=== PATIENT | female | born 1985 | race Caucasian/White ===

== ENCOUNTER 2022-08-16 22:15 | Emergency (ER) | payer MEDICAID ==
[2022-08-16 22:29] VITALS: BP 129/77
--- NOTE | 2022-08-16 22:58 | ED Physician Documentation ---
History of Present Illness - Stated complaint Stated Complaint: FET DETOX - Chief complaint Chief Complaint: General - History obtained from History obtained from: Patient, Other (SUSIE Magana at [facility] treatment facility) - Additonal information Additional information: 37-year-old woman presented from [facility] addiction treatment facility after being kicked out for having narcotics on her person. Patient comes into the emergency department requesting additional resources for addiction treatment. She has her belongings with her and states she has nowhere to sleep. Also states she has rough skin on both forearms. no other complaints. 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." - Present Medications Home Medications: Ambulatory Orders Medication Instructions Recorded Confirmed No Known Home Medications 08/16/22 08/16/22 - Allergies Allergies/Adverse Reactions: Allergies Allergy/AdvReac Type Severity Reaction Status Date / Time Penicillins Allergy Unknown Verified 08/16/22 22:23 - Social History Does the pt smoke?: Yes Smoking Status: Current every day smoker Does the pt drink ETOH?: No Does the pt have substance abuse?: Yes Substance Use and Type: Meth, Heroin, Prescription Pills, Other - Immunizations Immunizations are current?: No - POLST Patient has POLST: No PD ED PE NORMAL - Vitals Vital signs reviewed: Yes - General General: Alert and oriented X 3, No acute distress, Well developed/nourished - HEENT HEENT: Atraumatic, PERRL, EOMI - Derm Derm: Normal color, Warm and dry, Other (dry skin to BL forearms and hands.) - Neuro Neuro: Alert and oriented X 3, No motor deficit, No sensory deficit Eye Opening: Spontaneous Motor: Obeys Commands Verbal: Oriented GCS Score: 15 Results - Vitals Vitals: Vital Signs - 24 hr 08/16/22 22:24 Temperature 36.8 C Heart Rate 91 Respiratory 20 Rate Blood Pressure 129/77 O2 Saturation 98 Oxygen O2 Source Room air PD Medical Decision Making - ED course ED course: 37-year-old woman presents requesting detox referral after being kicked out of [facility] for using narcotics 1 to 2 hours ago. I recommended that she follow-up with her primary care provider in [place] where she lives. Return precautions given. Departure - Departure Disposition: 01 Home, Self Care Clinical Impression: Substance abuse Condition: Stable Instructions: ED Drug Abuse General Comments: You were seen in the emergency department for drug abuse. Please follow-up for addiction treatment management with your primary care provider in [place]. You are no longer welcome at [facility] due to their no tolerance policy. Return to the ED if you have other concerns.
== END 2022-08-16 23:01 | disposition home or self-care (01) ==
LOC: ED 22:15
DX: F19.10 Other psychoactive substance abuse, uncomplicated (principal); F17.200 Nicotine dependence, unspecified, uncomplicated
CPT/HCPCS: 99281; 99283